=== PATIENT | female | born 1945 ===

== ENCOUNTER 2017-11-03 06:48 | Day surgery (SDC) | payer MEDICARE ==
[2017-11-02 14:00] VITALS: BMI 27.0
--- NOTE | 2017-11-03 08:41 | CP.SDSHP ---
Same Day Surgery H & P - History Proposed Procedure: EGD Pre-Op Diagnosis: SEE NOTES - Previous Medical/Surgical History Cardiac: Hypertension Endocrine/Metabolic: Other Neuro: Backaches Misc: Other Pain: 4.Moderate Pain - Allergies Allergies: Allergies No Known Allergies Allergy (Verified 09/05/14 18:23) - Physical Exam General Appearance: N Vital Signs: Vital Signs 11/03/17 07:15 Temperature 98.7 F Pulse Rate 66 Respiratory 17 Rate Blood Pressure 133/83 O2 Sat by Pulse 99 Oximetry Mental Status: Alert & Oriented x3 Neuro: WNL Heart: Other Lungs: WNL GI: Other - {Optional Preform as Required} Breast: WNL Abdomen: Other Rectal: Other Integument: WNL : WNL Ortho: Other ENT: WNL - Impression Pt. Evaluated Today:Candidate for Anesthesia & Procedure: Yes - Date & Time Time: 08:41 Short Stay Discharge - Short Stay Discharge Admitting Diagnosis/Reason for Visit: DYSPEPSIA Disposition: HOME/ ROUTINE
[2017-11-03] MEDS ORDERED: Propofol 10 mg/ml Inj (20 ML) ONE (08:43)
[2017-11-03 09:08] VITALS: TEMP 98.8
[2017-11-03] MEDS ORDERED: Belladonna-Phenobarbital PO ONE (09:30)
[2017-11-03 09:42] VITALS: O2SAT 100
[2017-11-03 09:47] VITALS: BP 112/57; PULSE 65; RESP 12
== END 2017-11-03 11:30 | disposition home or self-care (01) ==
LOC: C.ENDO 06:48
PROVIDERS: ATTEND Specialist
DX: K25.9 Gastric ulcer, unspecified as acute or chronic, without hemorrhage or perforation (principal); K29.70 Gastritis, unspecified, without bleeding; K44.9 Diaphragmatic hernia without obstruction or gangrene
CPT/HCPCS: 43239; 88305; 88342; J2001; J2704

== ENCOUNTER 2018-09-29 11:26 | Emergency (ER) | payer MEDICARE ==
[2018-09-29 11:26] VITALS: BMI 27.0
[2018-09-29 11:42] VITALS: RESP 18
[2018-09-29] MEDS ORDERED: Sodium Chloride 0.9% 1,000 ML IV ONE (12:39)
[2018-09-29 12:50] LABS: SQUAMOUS EPITHIAL < 1 /hpf (0-5); URINE BACTERIA FEW (<OCC); URINE BILIRUBIN NEGATIVE (NEGATIVE); URINE BLOOD 2+ (NEGATIVE); URINE CLARITY Hazy (Clear); URINE COLOR Yellow (YELLOW); URINE GLUCOSE (UA) NORMAL (Normal); URINE LEUKOCYTE ESTERASE 3+ Leu/uL (Negative); URINE PROTEIN 1+ mg/dL (NEGATIVE); URINE UROBILINOGEN NORMAL mg/dL (0.2-1.0)
--- NOTE | 2018-09-29 13:32 | C.PDOC ---
History Of Present Illness 72 year old female presents to the ED for evaluation of fever, back pain and dysuria which began two days ago. Patient was seen at clinic, where they checked her urine results and told her they were within normal limits. Patient states her symptoms have persisted, and she presents to the ED for further evaluation. She denies nausea, vomiting, abdominal pain. Time Seen by Provider: 09/29/18 12:13 Chief Complaint (Nursing): Fever History Per: Patient History/Exam Limitations: no limitations Onset/Duration Of Symptoms: Days (2) Current Symptoms Are (Timing): Still Present Associated Symptoms: Fever. denies: Nausea, Vomiting Severity: Mild Additional History Per: Patient Past Medical History Reviewed: Historical Data, Nursing Documentation, Vital Signs Vital Signs: Last Vital Signs Temp 100 F H 09/29/18 11:36 Pulse 101 H 09/29/18 11:36 Resp 18 09/29/18 11:36 BP 131/84 09/29/18 11:36 Pulse Ox 95 09/29/18 11:36 - Medical History PMH: Anxiety (SOMETIMES,NO MED), Arthritis, Gastritis, HTN, Hypercholesterolemia Denies: Chronic Kidney Disease Surgical History: No Surg Hx Family History: States: Unknown Family Hx - Social History Hx Tobacco Use: No Hx Alcohol Use: No Hx Substance Use: No - Immunization History Hx Tetanus Toxoid Vaccination: No Hx Influenza Vaccination: No Hx Pneumococcal Vaccination: No Review Of Systems Constitutional: Positive for: Fever Gastrointestinal: Negative for: Nausea, Vomiting, Abdominal Pain Genitourinary: Positive for: Dysuria Musculoskeletal: Positive for: Back Pain Physical Exam - Physical Exam Appears: Non-toxic, No Acute Distress Skin: Normal Color, Warm, Dry Head: Atraumatic, Normacephalic Eye(s): bilateral: Normal Inspection Oral Mucosa: Moist Neck: Supple Chest: Symmetrical, No Deformity, No Tenderness Cardiovascular: Rhythm Regular, No Murmur Respiratory: Normal Breath Sounds, No Rales, No Rhonchi, No Wheezing Gastrointestinal/Abdominal: Soft, Tenderness (suprapubic), No Guarding, No Rebound Extremity: Normal ROM, Capillary Refill (less than 2 seconds ) Neurological/Psych: Oriented x3, Normal Speech, Normal Cognition Gait: Steady ED Course And Treatment - Laboratory Results Result Diagrams: 09/29/18 13:29 09/29/18 13:29 Lab Results: Urine Color Yellow (YELLOW) 09/29/18 12:31 Urine Clarity Hazy (Clear) 09/29/18 12:31 Urine pH 6.0 (5.0-8.0) 09/29/18 12:31 Ur Specific [place] 1.012 (1.003-1.030) 09/29/18 12:31 Urine Protein 1+ mg/dL (NEGATIVE) H 09/29/18 12:31 Urine Glucose (UA) Normal mg/dL (Normal) 09/29/18 12:31 Urine Ketones Trace mg/dL (NEGATIVE) 09/29/18 12:31 Urine Blood 2+ (NEGATIVE) H 09/29/18 12:31 Urine Nitrate Negative (NEGATIVE) 09/29/18 12:31 Urine Bilirubin Negative (NEGATIVE) 09/29/18 12:31 Urine Urobilinogen Normal mg/dL (0.2-1.0) 09/29/18 12:31 Ur Leukocyte Esterase 3+ [place]/uL (Negative) H 09/29/18 12:31 Urine WBC (Auto) 94 /hpf (0-5) H 09/29/18 12:31 Urine RBC (Auto) 28 /hpf (0-3) H 09/29/18 12:31 Ur Squamous Epith Cells < 1 /hpf (0-5) 09/29/18 12:31 Urine Bacteria Few (<OCC) H 09/29/18 12:31 Lab Interpretation: No Acute Changes O2 Sat by Pulse Oximetry: 95 (on RA) Pulse Ox Interpretation: Normal - CT Scan/US CT A/P Other Rad Studies (CT/US): Read By Radiologist, Radiology Report Reviewed CT/US Interpretation: PROCEDURE: CT Abdomen and Pelvis without Oral or IV contrast. HISTORY: Pain. COMPARISON: Abdominal ultrasound performed 06/04/18. TECHNIQUE: Contiguous axial images of the abdomen and pelvis. No oral or IV contrast administered. Coronal and Sagittal reformats generated and reviewed. Radiation dose: Total exam DLP = 331.62 mGy-cm. This CT exam was performed using one or more of the following dose reduction techniques: Automated exposure control, adjustment of the mA and/or kV according to patient size, and/or use of iterative reconstruction technique. FINDINGS: There is limited evaluation of the solid organs without the administration of IV contrast. LOWER THORAX: No visible consolidation, pleural effusion, or pneumothorax. Small hiatal hernia/distal esophageal wall thickening. LIVER: Unremarkable unenhanced appearance. GALLBLADDER AND BILE DUCTS: Unremarkable unenhanced appearance. PANCREAS: Unremarkable unenhanced appearance. SPLEEN: 10 mm probable splenule. Otherwise unremarkable unenhanced appearance. ADRENALS: Unremarkable unenhanced appearance. KIDNEYS AND URETERS: No hydronephrosis or obstructing renal calculus. Mild fullness of the right ureter without obstructing calculus identified. BLADDER: Thick-walled under distended urinary bladder. REPRODUCTIVE: Uterus is present. Uterine calcifications may be related to fibroids. 2.7 x 1.8 cm probable right ovarian cyst. APPENDIX: The appendix appears within normal limits of caliber. No secondary signs of acute appendicitis. BOWEL: The stomach is nondistended. Lack of oral contrast limits evaluation for bowel pathology. The bowel loops appear within normal limits of caliber without evidence of intestinal obstruction. Moderate to severe diffuse constipation. Diverticulosis without CT evidence of acute diverticulitis. PERITONEUM: No significant free fluid. No definite free air. LYMPH NODES: No bulky lymphadenopathy identified. VASCULATURE: Atherosclerotic calcifications of the aorta and branches. No aortic aneurysm. BONES: Degenerative changes. OTHER FINDINGS: None. IMPRESSION: Mild fullness of the right ureter without obstructing calculus evident. Diverticul osis without CT evidence of acute diverticulitis. Moderate to severe diffuse constipation. 2.7 x 1.8 cm probable right ovarian cyst. Recommend further evaluation with pelvic ultrasound if indicated. Additional findings as above. Progress Note: bloodwork, urinalysis, CT A/P, Flu swab ordered and reviewed. Tylenol PO and IV fluids given. Treated with macrobid PO. On re-evaluation abdomen soft non-tender Reassessment Condition: Improved Disposition Counseled Patient/Family Regarding: Studies Performed, Diagnosis, Need For Followup, Rx Given - Disposition Referrals: [facility] [Outside] [facility] [Outside] Disposition: HOME/ ROUTINE Disposition Time: 14:20 Condition: STABLE Additional Instructions: Drink lots of fluids Motrin or tylenol as needed for pain Prescriptions: Nitrofurantoin Macrocrystals [Macrobid] 1 cap PO BID #14 cap Instructions: Urinary Tract Infections in Adults Forms: [facility] (Bulgarian) Print Language: WELSH - POA Present On Arrival: None - Clinical Impression Clinical Impression: UTI (urinary tract infection) - PA / PLATFORM BUILDER / Resident Statement MD/DO has reviewed & agrees with the documentation as recorded. - Scribe Statement The provider has reviewed the documentation as recorded by the Scribe (Madison Castanon) All medical record entries made by the Scribe were at my direction and personally dictated by me. I have reviewed the chart and agree that the record accurately reflects my personal performance of the history, physical exam, [facility] decision making, and the department course for this patient. I have also personally directed, reviewed, and agree with the discharge instructions and disposition.
[2018-09-29 13:35] LABS: HEMOGLOBIN 13.6 g/dL (11.0-16.0); MONO # 0.9 K/uL (0.0-0.8)
[2018-09-29 13:38] LABS: BASO % 0.4 % (0.0-2.0); EOS % 0.1 % (0.0-4.0); LYMPH # 1.4 K/uL (1.0-4.3); LYMPH % 12.2 % (20.0-40.0); MEAN CELL VOLUME 88.8 fL (81.0-99.0); MEAN CORPUSCULAR HEMOGLOBIN 29.7 pg (27.0-31.0); MEAN CORPUSCULAR HGB CONC 33.4 g/dL (33.0-37.0); MEAN PLATELET VOLUME 8.7 fL (7.2-11.7); MONO % 8.5 % (0.0-10.0); NEUT # 8.8 K/uL (1.8-7.0); NEUT % 78.8 % (50.0-75.0); RBC 4.59 Mil/uL (3.80-5.20); RED CELL DISTRIBUTION WIDTH 13.5 % (11.5-14.5)
[2018-09-29 13:48] LABS: ALB/GLOB RATIO 1.2 (1.0-2.1); ALBUMIN 4.2 g/dL (3.5-5.0); ALT/SGPT 20 U/L (9-52); AST/SGOT 27 U/L (14-36); BLOOD UREA NITROGEN 12 mg/dL (7-17); GFR NON-AFRICAN AMERICAN > 60
[2018-09-29 13:50] LABS: WHITE BLOOD COUNT 11.1 K/uL (4.8-10.8)
[2018-09-29 14:20] VITALS: BP 128/78; PULSE 90; TEMP 98.5
[2018-09-29 15:03] VITALS: O2SAT 95
== END 2018-09-29 14:34 | disposition home or self-care (01) ==
LOC: C.ER 11:26
DX: N39.0 Urinary tract infection, site not specified (principal)
CPT/HCPCS: 74176; 80053; 81001; 85025; 87086; 87804; 96360; 99284; J7030

== ENCOUNTER 2018-11-12 10:27 | Outpatient (CLI) | payer MEDICARE | END 2018-11-12 10:28 | disposition home or self-care (01) | LOC: C.MAMMO 10:27 | DX: Z12.31 Encounter for screening mammogram for malignant neoplasm of breast (principal) ==